=== PATIENT | female | born 1980 | race African-American/Black ===

== ENCOUNTER 2024-02-13 15:28 | Emergency (ER) | payer MEDICAID ==
[~2024-02-13] VITALS: Ht 162.6 cm; Wt 72.0 kg
[2024-02-13 15:34] VITALS: O2SAT 99
[2024-02-13 16:10] LABS: BASOPHILS % 1.4 % (0.0-2.0); EOSINOPHILS % 3.8 % (0.0-5.0); HEMATOCRIT. 35.2 % (36.0-48.0); HEMOGLOBIN. 11.7 g/dL (12.0-16.0); LYMPHOCYTES % 45.1 % (20.0-50.0); MEAN CORPUSCULAR HEMOGLOBIN 30.2 pg (28.0-32.0); MEAN CORPUSCULAR HGB CONC 33.3 g/dL (31.0-37.0); MEAN CORPUSCULAR VOLUME 90.7 fL (81.0-99.0); MEAN PLATELET VOLUME 8.1 fl (7.4-10.4); MONOCYTES % 9.6 % (2.0-8.0); NEUTROPHILS % 40.1 % (40.0-76.0); PLATELET 257 x1000/uL (130-400); RED BLOOD CELL COUNT 3.88 mill/uL (4.2-5.4); RED CELL DISTRIBUTION WIDTH 13.6 % (11.6-14.6); WHITE BLOOD COUNT 4.4 x1000/uL (4.5-11.0)
[2024-02-13 16:19] LABS: CHLORIDE 106 mEq/L (98-107); POTASSIUM 3.9 mEq/L (3.5-5.1); SODIUM 139 mEq/L (136-145)
[2024-02-13 16:20] LABS: CALCIUM 8.7 mg/dL (8.7-10.4); CARBON DIOXIDE 27 mEq/L (21-32)
[2024-02-13 16:25] LABS: CREATININE 0.9 mg/dL (0.6-1.0); GLUCOSE 104 mg/dL (70-105); UREA NITROGEN BLOOD 11 mg/dL (9-23)
[2024-02-13] MEDS ORDERED: VALA10002 MT (18:34)
[2024-02-13] MEDS ORDERED: P50 MT (18:34)
[2024-02-13] MEDS ORDERED: GLYC30DR4 RIGHTEYE (18:35)
[2024-02-13 19:04] LABS: HCG SCREEN NEGATIVE
[2024-02-13 20:20] VITALS: BP 115/73; PULSE 76; RESP 13; TEMP 98.1
== END 2024-02-13 20:48 | disposition home or self-care (01) ==
LOC: ER 15:46
DX: G51.0 Bell's palsy (principal); Z87.891 Personal history of nicotine dependence
CPT/HCPCS: 36415; 80048; 84703; 85025; 99285